=== PATIENT | male | born 1940 ===

== ENCOUNTER 2021-01-30 13:59 | Outpatient (CLI) | payer MEDICARE, BC ==
[~2021-01-30 13:59] MED LIST: Magnevist 469MG/ML 20 ML VIAL ONE
== END 2021-01-30 14:00 | disposition home or self-care (01) ==
LOC: TBSIIMAG 13:59
PROVIDERS: ATTEND Neurological Surgery
DX: M47.16 Other spondylosis with myelopathy, lumbar region (principal); M48.061 Spinal stenosis, lumbar region without neurogenic claudication; M51.06 Intervertebral disc disorders with myelopathy, lumbar region
CPT/HCPCS: 72158; A9579